=== PATIENT | male | born 1935 | race Caucasian/White ===

== ENCOUNTER 2019-02-20 18:51 | Observation (INO) | payer OTHER, BC ==
--- NOTE | 2019-02-20 19:03 | PDOC ---
Rapid Medical Evaluation Chief Complaint: Chest Pain Medical Evaluation: Allergies Allergy/AdvReac Type Severity Reaction Status Date / Time No Known Allergies Allergy Verified 02/20/19 18:59 Vital Signs Temp Pulse Resp BP Pulse Ox 98.6 F 60 16 138/47 L 99 02/20/19 18:54 02/20/19 18:54 02/20/19 18:54 02/20/19 18:54 02/20/19 18:54 02/20/19 19:02 his patient had a brief in-person evaluation in triage CC:mid chest pain x today. States pain worse when he takes a deep breath has a defirillator in place PE: NAD unlabored breathing, lungs clear bilaterally non tender chest orders: ekg, chest xray , labs This patient will proceed to the ED for further evaluation Discharge Disposition - Diagnosis Chest pain - Referrals - Patient Instructions - Post Discharge Activity
[2019-02-20 19:33] LABS: BASO % 0.3 % (0-2.0); HEMATOCRIT 33.5 % (35.4-49); HEMOGLOBIN 11.3 GM/dL (11.7-16.9); LYMPH % 7.5 % (8-40); MCHC 33.7 g/dl (32.0-35.9); MEAN CELL VOLUME 86.2 fl (80-96); MEAN PLT VOLUME 10.1 fl (7.5-11.1); MONO % 7.7 % (3.8-10.2); NEUT % 84.5 % (42.8-82.8); PLATELET COUNT 187 K/MM3 (134-434); RBC 3.88 M/mm3 (4.00-5.60); RDW 17.2 % (11.9-15.9); WHITE BLOOD COUNT 9.7 K/mm3 (4.0-10.0)
[2019-02-20 19:52] LABS: ALBUMIN 3.3 g/dl (3.4-5.0); BILIRUBIN,TOTAL 0.6 mg/dL (0.2-1); BLOOD UREA NITROGEN 15.6 mg/dL (7-18); CALCIUM 8.8 mg/dL (8.5-10.1); CREATININE 1.1 mg/dL (0.55-1.3); TOT PROT 7.4 g/dl (6.4-8.2)
[2019-02-20 20:16] LABS: INR 1.79 (0.83-1.09); PROTHROMBIN TIME (PATIENT) 21.2 SEC (9.7-13.0)
[2019-02-20 20:19] LABS: ACTIVATED PTT 47.9 SECONDS (25.2-36.5)
[2019-02-20 21:00] LABS: N-TERMINAL BNP 1929.1 pg/ml (5-450)
--- NOTE | 2019-02-20 21:52 | PDOC ---
History of Present Illness - General Chief Complaint: Chest Pain Stated Complaint: CHEST PAIN Time Seen by Provider: 02/20/19 19:54 History Source: Patient Exam Limitations: No Limitations - History of Present Illness Initial Comments: 02/20/19 20:38 83 yo male pmh of V tach 4 years ago (on eliquis, has defibrillator, Primary Cardiology Dr. Patterson, last Echo 4-5 months ago reported as normal) presents to the ED for CP. Pt states the CP has been ongoing for 1 month related to deep breathing, non exertional, no radiation. Admits to increased SOB with walking up stairs but no positional dyspnea. Denies recent travel, new calf tenderness, F/C/N/V, back pain, abdominal pain, changes in bowel or bladder habits. Pt admits to increased excersise Past History - Past Medical History Allergies/Adverse Reactions: Allergies Allergy/AdvReac Type Severity Reaction Status Date / Time No Known Allergies Allergy Verified 02/20/19 18:59 Home Medications: Ambulatory Orders NK [No Known Home Medication] 07/13/14 Atorvastatin Ca [Lipitor -] 40 mg PO tablet 07/28/14 Carvedilol 3.125 mg PO tablet 07/28/14 Anemia: No Asthma: No Cancer: Yes (28 YRS AGO LUNG/BRAIN) Cardiac Disorders: Yes CVA: No COPD: No CHF: No Dementia: No Diabetes: No GI Disorders: No Disorders: No HTN: No Hypercholesterolemia: No Liver Disease: No Seizures: Yes (28 YRS AGO) Thyroid Disease: No - Surgical History Abdominal Surgery: No Appendectomy: No Cardiac Surgery: Yes Cholecystectomy: No Lung Surgery: Yes (LUNG CA REMOVED) Neurologic Surgery: Yes (BRAIN CA SX) Orthopedic Surgery: Yes (KNEE SURGERY) - Suicide/Smoking/Psychosocial Hx Smoking History: Former smoker Have you smoked in the past 12 months: No Number of Cigarettes Smoked Daily: 8 If you are a former smoker, when did you quit?: 28 YRS AGO Information on smoking cessation initiated: No Hx Alcohol Use: No Drug/Substance Use Hx: No Substance Use Type: None Hx Substance Use Treatment: No *Physical Exam - Vital Signs Last Vital Signs Temp Pulse Resp BP Pulse Ox 98.6 F 60 16 138/47 L 99 02/20/19 18:54 02/20/19 18:54 02/20/19 18:54 02/20/19 18:54 02/20/19 18:54 ED Treatment Course - LABORATORY CBC & Chemistry Diagram: 02/20/19 19:15 02/20/19 19:15 - ADDITIONAL ORDERS Additional order review: Laboratory Results 02/20/19 02/20/19 02/20/19 19:15 19:15 19:15 PT with INR 21.20 H INR 1.79 H PTT (Actin FS) 47.9 H Sodium 136 Potassium 4.0 Chloride 102 Carbon Dioxide 29 Anion Gap 5 L BUN 15.6 Creatinine 1.1 Est GFR (CKD-EPI)AfAm 72.07 Est GFR (CKD-EPI)NonAf 62.19 Random Glucose 108 H Calcium 8.8 Total Bilirubin 0.6 AST 16 ALT 13 Alkaline Phosphatase 137 H Troponin I < 0.02 Total Protein 7.4 Albumin 3.3 L 02/20/19 19:15 RBC 3.88 L MCV 86.2 MCHC 33.7 RDW 17.2 H MPV 10.1 Neutrophils % 84.5 H Lymphocytes % 7.5 L D Monocytes % 7.7 Eosinophils % 0.0 Basophils % 0.3 *DC/Admit/Observation/Transfer Diagnosis at time of Disposition: Chest pain, New onset of congestive heart failure - Discharge Dispostion Condition at time of disposition: Stable Decision to Admit order: Yes - Referrals Referrals: Balaji Peng MD [Primary Care Provider] - - Patient Instructions - Post Discharge Activity
--- NOTE | 2019-02-20 21:52 | PDOC ---
Documentation entered by Carrie Borden SCRIBE, acting as scribe for Ludmila Lang DO. Ludmila Lang DO: This documentation has been prepared by the héctor, Carrie Borden SCRIBE, under my direction and personally reviewed by me in its entirety. I confirm that the documentation accurately reflects all work , treatment, procedures, and medical decision making performed by me. Attending Attestation - Resident Resident Name: Pete Campuzano - ED Attending Attestation I have performed the following: I have examined & evaluated the patient, The case was reviewed & discussed with the resident, I agree w/resident's findings & plan, Exceptions are as noted - HPI HPI: 02/20/19 21:24 The patient is an 83-year-old male, with a past medical history of ventricular tachycardia (Defibrillator in place), who presents to the ED with pleuritic chest pain and B/L LE swelling. - Physicial Exam PE: 02/20/19 21:25 Agree with resident exam. - Medical Decision Making 02/20/19 21:50 83-year-old male with leg swelling and central chest pressure Though patient anticoagulated, in the setting of a mildly elevated d-dimer and acute leg swelling as well as constant central chest pressure lower extremity Dopplers as well as CTA of the chest be done to rule out PE Plan for admission pending results for further evaluation, serial troponins as well
--- NOTE | 2019-02-20 23:47 | HP ---
Admitting History and Physical - Primary Care Physician PCP: Balaji Peng - Admission Chief Complaint: Chest Pain, SOB, Leg Swelling History of Present Illness: This is a 83 y/o man with a significant medical history of Lung Ca s/p Lobectomy , Brain Ca w/ Abscess s/p surgical intervention, V- Tach s/p AICD, HLD. Who presents to the ED with chest pressure non-radiating increased on deep inspiration, SOB and LE swelling x several days. Patient describes the CP as sharp and constant. Patient reports that the pain started while at rest. Patient denies fever, chills, dizziness, palpitations, AP, N/V/D, constipation History Source: Patient Limitations to Obtaining History: No Limitations - Past Medical History CHICKEN HANGER: Yes: Syncope (Near syncope) Cardiovascular: Yes: Hyperlipdemia, Mitral Insufficiency Pulmonary: Yes: Cancer (Lung) - Past Surgical History Past Surgical History: Yes: AICD - Smoking History Smoking history: Former smoker Have you smoked in the past 12 months: No Aproximately how many cigarettes per day: 8 If you are a former smoker, when did you quit?: 28 YRS AGO - Alcohol/Substance Use Hx Alcohol Use: No History of Substance Use: reports: None - Social History Usual Living Arrangement: Yes: With Spouse ADL: Independent Home Medications - Allergies Allergies/Adverse Reactions: Allergies Allergy/AdvReac Type Severity Reaction Status Date / Time No Known Allergies Allergy Verified 02/20/19 18:59 - Home Medications Home Medications: Ambulatory Orders Apixaban [Eliquis] 5 mg PO DAILY 02/20/19 Carvedilol [Coreg -] 6.25 mg PO BID 02/20/19 Ranolazine [Ranexa] 500 mg PO BID 02/20/19 Family Disease History - Family Disease History Family Disease History: Heart Disease: Father ([place]- ), Other: Mother ( Old Age- ) Review of Systems - Review of Systems Constitutional: reports: No Symptoms Eyes: reports: No Symptoms HENT: reports: No Symptoms Neck: reports: No Symptoms Cardiovascular: reports: Chest Pain, Shortness of Breath Respiratory: reports: SOB Gastrointestinal: reports: No Symptoms Genitourinary: reports: No Symptoms Breasts: reports: No Symptoms Reported Musculoskeletal: reports: No Symptoms Integumentary: reports: No Symptoms Neurological: reports: No Symptoms Endocrine: reports: No Symptoms Hematology/Lymphatic: reports: No Symptoms Psychiatric: reports: No Symptoms Pain Intensity: 6 Physical Examination Vital Signs: Vital Signs Temperature 98.6 F 02/20/19 18:54 Pulse Rate 60 02/20/19 18:54 Respiratory Rate 16 02/20/19 18:54 Blood Pressure 138/47 L 02/20/19 18:54 O2 Sat by Pulse Oximetry (%) 99 02/20/19 18:54 Constitutional: Yes: Well Nourished, No Distress, Calm Eyes: Yes: WNL, Conjunctiva Clear, EOM Intact, PERRL HENT: Yes: WNL, Atraumatic, Normocephalic Neck: Yes: WNL, Supple, Trachea Midline Cardiovascular: Yes: Pulse Irregular, S1, S2, Other (AICD- LCW) Respiratory: Yes: Diminished Gastrointestinal: Yes: WNL, Normal Bowel Sounds, Soft Renal/: Yes: WNL Breast(s): Yes: WNL Musculoskeletal: Yes: WNL Extremities: Yes: WNL Edema: Yes Edema: LLE: 2+, RLE: 1+ Peripheral Pulses WNL: Yes Neurological: Yes: WNL, Alert, Oriented, Cran Nerves II-XII Intact ...Motor Strength: WNL Psychiatric: Yes: WNL, Alert, Oriented Labs: CBC, BMP 02/20/19 19:15 02/20/19 19:15 Laboratory Results - last 24 hr 02/20/19 02/20/19 02/20/19 19:15 19:15 19:15 WBC 9.7 RBC 3.88 L Hgb 11.3 L Hct 33.5 L D MCV 86.2 MCH 29.0 MCHC 33.7 RDW 17.2 H Plt Count 187 D MPV 10.1 Absolute Neuts (auto) 8.2 H Neutrophils % 84.5 H Lymphocytes % 7.5 L D Monocytes % 7.7 Eosinophils % 0.0 Basophils % 0.3 Nucleated RBC % 0 PT with INR 21.20 H INR 1.79 H PTT (Actin FS) 47.9 H D-Dimer Sodium 136 Potassium 4.0 Chloride 102 Carbon Dioxide 29 Anion Gap 5 L BUN 15.6 Creatinine 1.1 Est GFR (CKD-EPI)AfAm 72.07 Est GFR (CKD-EPI)NonAf 62.19 Random Glucose 108 H Calcium 8.8 Total Bilirubin 0.6 AST 16 ALT 13 Alkaline Phosphatase 137 H Troponin I B-Natriuretic Peptide 1929.1 H Total Protein 7.4 Albumin 3.3 L 02/20/19 02/20/19 02/21/19 19:15 19:15 01:50 WBC RBC Hgb Hct MCV MCH MCHC RDW Plt Count MPV Absolute Neuts (auto) Neutrophils % Lymphocytes % Monocytes % Eosinophils % Basophils % Nucleated RBC % PT with INR INR PTT (Actin FS) D-Dimer 582 H Sodium Potassium Chloride Carbon Dioxide Anion Gap BUN Creatinine Est GFR (CKD-EPI)AfAm Est GFR (CKD-EPI)NonAf Random Glucose Calcium Total Bilirubin AST ALT Alkaline Phosphatase Troponin I < 0.02 < 0.02 B-Natriuretic Peptide Total Protein Albumin Imaging - Results Chest X-ray: Image Reviewed Cat Scan: Report Reviewed, Image Reviewed Assessment/Plan This is a 83 y/o man with a PMHx of: Lung Ca s/p Lobectomy, Brain Ca s/p Resection, V- Tach s/p AICD, HLD. Admitted to Telemetry for NSTEMI, New Onset CHF for further evaluation of their emergent condition. Plan: Admit Tele HEART Score 4 Continue cardiac monitoring Appreciate Cardiology consult Echo in am CTA done r/o PE- report shows neg PE, neg TAA or dissection, 5.3cm x 5cm LLL mass highly suspicious for carcinoma, moderate left and small right pleural effusion. 1.6cm RLL nodule or nodular infiltrate Duplex b/l LE- neg DVT Appreciate Pulm consult Appreciate Oncology consult Monitor CBC, BMP Asa Morphine prn Continue Eliquis Continue other home meds FEN- PO fluids as tolerated, Replete lytes prn, Low Na Diet DVT ppx- OOB, SCDs, Continue Eliquis Dispo: Requires Inpatient Care Visit type - Emergency Visit Emergency Visit: Yes ED Registration Date: 02/20/19 Care time: The patient presented to the Emergency Department on the above date and was hospitalized for further evaluation of their emergent condition. - New Patient This patient is new to me today: Yes Date on this admission: 02/20/19 - Critical Care Critical Care patient: No
[2019-02-21] MEDS ORDERED: FUROSEMIDE 40 MG/4 ML INJECTABLE VIAL IVPUSH ONE (04:46)
[2019-02-21] MEDS ORDERED: MORPHINE SULFATE 2 MG/ML VIAL IVPUSH PRN (05:36)
[2019-02-21] MEDS ORDERED: ONDANSETRON 4 MG/2 ML VIAL IVPUSH PRN (05:37)
[2019-02-21 05:43] VITALS: BMI 24.0
[2019-02-21 06:36] VITALS: TEMP 98.4
[2019-02-21 07:43] LABS: BASO % 0.1 % (0-2.0); HEMATOCRIT 29.9 % (35.4-49); LYMPH % 8.6 % (8-40); MCH 29.1 pg (25.7-33.7); MCHC 33.4 g/dl (32.0-35.9); MEAN CELL VOLUME 87.3 fl (80-96); MEAN PLT VOLUME 9.9 fl (7.5-11.1); MONO % 12.1 % (3.8-10.2); NEUT % 79.2 % (42.8-82.8); PLATELET COUNT 147 K/MM3 (134-434); RBC 3.42 M/mm3 (4.00-5.60); RDW 16.8 % (11.9-15.9); WHITE BLOOD COUNT 8.8 K/mm3 (4.0-10.0)
[2019-02-21 08:07] LABS: BLOOD UREA NITROGEN 15.1 mg/dL (7-18); CHLORIDE 103 mmol/L (98-107); CO2 30 mmol/L (21-32); GLUCOSE,RANDOM 100 mg/dL (74-106); POTASSIUM 3.6 mmol/L (3.5-5.1); SODIUM 138 mmol/L (136-145)
[2019-02-21 08:08] LABS: ANION GAP 5 MMOL/L (8-16); CALCIUM 8.2 mg/dL (8.5-10.1); MAGNESIUM 2.3 mg/dL (1.8-2.4)
[2019-02-21 08:34] VITALS: BP 107/54; PULSE 63
--- NOTE | 2019-02-21 09:04 | CON.CARD ---
Consult Consult Specialty:: Cardiology Referred by:: Yazmin Silva MD Reason for Consultation:: CAD, ICD, VT, PAF - History of Present Illness Chief Complaint: chest pressure SOB and LE swelling x several days History of Present Illness: Patient is a 83 year old male last seen in the office in 01/11/19 with history of lung CA S/P lobectomy, brain abscess S/P surgical intervention, hyperlipidemia, 3 vessel CAD, sustained VT s/p Biotronik ICD, PAF [id number] 3- 4 admitted for pleuritic, non-exertional chest pressure non-radiating increased on deep inspiration, SOB and LE swelling x several days. Patient describes the CP as sharp and constant. Patient denies fever, chills, dizziness, palpitations , hemoptysis, orthopnea, PND, ICD d/c or LE edema, chest CTA neg for PE, + RLL and LLL pleural based masses with small effusion and suggestion of mets to hilum. - History Source History Provided By: Patient Limitations to Obtaining History: No Limitations - Past Medical History HAZMAT TECHNICIAN: Yes: Syncope (Near syncope) Cardio/Vascular: Yes: Hyperlipdemia, Mitral Insufficiency Pulmonary: Yes: Cancer (Lung) - Past Surgical History Past Surgical History: Yes: AICD - Alcohol/Substance Use Hx Alcohol Use: No History of Substance Use: reports: None - Smoking History Smoking history: Former smoker Have you smoked in the past 12 months: No Aproximately how many cigarettes per day: 8 If you are a former smoker, when did you quit?: 28 YRS AGO - Social History ADL: Independent Home Medications - Allergies Allergies/Adverse Reactions: Allergies Allergy/AdvReac Type Severity Reaction Status Date / Time No Known Allergies Allergy Verified 02/20/19 18:59 - Home Medications Home Medications: Ambulatory Orders Apixaban [Eliquis] 5 mg PO DAILY 02/20/19 Carvedilol [Coreg -] 6.25 mg PO BID 02/20/19 Ranolazine [Ranexa] 500 mg PO BID 02/20/19 Family Disease History - Family Disease History Family Disease History: Heart Disease: Father ([place]- ), Other: Mother ( Old Age- ) Review of Systems - Review of Systems Cardiovascular: reports: Chest Pain, Shortness of Breath Respiratory: reports: SOB Vital Signs: Vital Signs Temperature 98.4 F 02/21/19 08:30 Pulse Rate 63 02/21/19 08:30 Respiratory Rate 18 02/21/19 08:30 Blood Pressure 107/54 L 02/21/19 08:30 O2 Sat by Pulse Oximetry (%) 95 02/21/19 07:14 Constitutional: Yes: No Distress, Calm, Thin Neck: Yes: Supple Respiratory: Yes: Regular, Diminished Gastrointestinal: Yes: Normal Bowel Sounds, Soft Cardiovascular: Yes: Regular Rate and Rhythm JVD: No Carotid Bruit: No Heart Sounds: Yes: S1, S2 Edema: No - Other Data Labs, Other Data: CBC, BMP 02/21/19 07:10 02/21/19 07:10 INR, PTT INR 1.79 (0.83-1.09) H 02/20/19 19:15 Troponin, BNP 02/20/19 02/20/19 02/21/19 19:15 19:15 01:50 Troponin I < 0.02 < 0.02 B-Natriuretic Peptide 1929.1 H 02/21/19 07:10 Troponin I < 0.02 B-Natriuretic Peptide Troponin, BNP 02/20/19 02/20/19 02/21/19 19:15 19:15 01:50 Troponin I < 0.02 < 0.02 B-Natriuretic Peptide 1929.1 H 02/21/19 07:10 Troponin I < 0.02 B-Natriuretic Peptide NSR @ 68 Ejection Fraction %: LVEF > or = 40 % Imaging - Results Chest X-ray: Report Reviewed (LLL mass) Cat Scan: Report Reviewed (Chest CTA: No PE, RLL and LLL pleural based mass with small effusion, RUL resection, mediastinal adenopathy) Ultrasound: Pending Problem List - Problems (1) Atypical chest pain Code(s): R07.89 - OTHER CHEST PAIN (2) ICD (implantable cardioverter-defibrillator) in place Code(s): Z95.810 - PRESENCE OF AUTOMATIC (IMPLANTABLE) CARDIAC DEFIBRILLATOR (3) Sustained ventricular tachycardia Code(s): I47.2 - VENTRICULAR TACHYCARDIA (4) Lung mass Code(s): R91.8 - OTHER NONSPECIFIC ABNORMAL FINDING OF LUNG FIELD (5) Hypertension Code(s): I10 - ESSENTIAL (PRIMARY) HYPERTENSION Qualifiers: Hypertension type: essential hypertension Qualified Code(s): I10 - Essential (primary) hypertension (6) Hyperlipidemia Code(s): E78.5 - HYPERLIPIDEMIA, UNSPECIFIED Qualifiers: Hyperlipidemia type: pure hypercholesterolemia Qualified Code(s): E78.00 - Pure hypercholesterolemia, unspecified; E78.0 - Pure hypercholesterolemia (7) Paroxysmal atrial fibrillation Code(s): I48.0 - PAROXYSMAL ATRIAL FIBRILLATION (8) Chronic anticoagulation Code(s): Z79.01 - USP (CURRENT) USE OF ANTICOAGULANTS (9) Coronary artery disease Code(s): I25.10 - ATHSCL HEART DISEASE OF [place] CORONARY ARTERY W/O ANG PCTRS Qualifiers: Coronary Disease-Associated Artery/Lesion type: unspecified vessel or lesion type Associated angina: without angina Assessment/Plan 02/04/2019 ICD interrogation: A paced 85%, RV paced 3%, atrial burden 2.9%, no ventricular arrhytmias, no ICD therapy, mean number of mode switched per day is 80 06/29/2018 Normal LV and RV size and fxn, mild LAE, tr VT, ICD 1. Atypical chest pain -> Bilateral lower lobe masses with mediastinal adenopathy r/o lung ca recurrence 2. PAF->SR [id number] 4 on NOAC 3. 3 vessel CAD 4. Sustained ventricular tachycardia S/P Biotronik ICD 5. Diastolic dysfunction 6. Hypercholesterolemia 7. History of lung CA S/P lobectomy 8. History of brain abscess S/P resection PLAN: 1. Hold Eliquis pending biopsy of lung mass, may proceed 2 days after withhold and resume once post-procedure hemostasis achieved, f/u formal vasc US results, metastatic w/u 2. Ruled out [place] 3. Continue Lipitor 40 qd, carvedilol 6.25 bid, Ranexa 500 bid 4. Thank you for consultative opportunity
[2019-02-21] MEDS ORDERED: RANOLAZINE E.R. 500 MG TABLET (FP) PO SCH (10:00)
[2019-02-21] MEDS ORDERED: APIXABAN 5 MG TABLET PO SCH (10:00)
[2019-02-21] MEDS ORDERED: CARVEDILOL 6.25 MG TABLET (FP) PO SCH (10:00)
--- NOTE | 2019-02-21 12:33 | PN ---
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 S/P R LOBECTOMY + CRANIOTOMY ASHD PAF ANEMIA PLAN WILL SCHEDULE FOR CT GUIDED BX LLL MASS PET OUTPATIENT HOLD SOFIYA LUCERO Problem List - Problems (1) Atypical chest pain Code(s): R07.89 - OTHER CHEST PAIN (2) Chronic anticoagulation Code(s): Z79.01 - COMPLETION SUPERVISOR (CURRENT) USE OF ANTICOAGULANTS (3) Coronary artery disease Code(s): I25.10 - ATHSCL HEART DISEASE OF [place] CORONARY ARTERY W/O ANG PCTRS (4) Hyperlipidemia Code(s): E78.5 - HYPERLIPIDEMIA, UNSPECIFIED Qualifiers: Qualified Code(s): E78.00 - Pure hypercholesterolemia, unspecified; E78.0 - Pure hypercholesterolemia (5) Hypertension Code(s): I10 - ESSENTIAL (PRIMARY) HYPERTENSION Qualifiers: Qualified Code(s): I10 - Essential (primary) hypertension (6) ICD (implantable cardioverter-defibrillator) in place Code(s): Z95.810 - PRESENCE OF AUTOMATIC (IMPLANTABLE) CARDIAC DEFIBRILLATOR (7) Lung mass Code(s): R91.8 - OTHER NONSPECIFIC ABNORMAL FINDING OF LUNG FIELD (8) Paroxysmal atrial fibrillation Code(s): I48.0 - PAROXYSMAL ATRIAL FIBRILLATION (9) Sustained ventricular tachycardia Code(s): I47.2 - VENTRICULAR TACHYCARDIA
--- NOTE | 2019-02-21 12:40 | PN ---
Progress Note (short form) - Note Progress Note: Events noted has some left sided chest discomfort no sob on lying down family at bedside Vital Signs - 24 hr 02/20/19 02/20/19 02/21/19 18:54 23:25 02:00 Temperature 98.6 F 99.0 F Pulse Rate 60 Pulse Rate [ 72 60 Apical] Respiratory 16 20 16 Rate Blood Pressure 138/47 L Blood Pressure 120/68 112/57 L [Left Arm] O2 Sat by Pulse 99 95 96 Oximetry (%) 02/21/19 02/21/19 02/21/19 05:34 06:00 07:14 Temperature 97.8 F 98.4 F Pulse Rate 61 61 Pulse Rate [ Apical] Respiratory 20 18 18 Rate Blood Pressure 119/52 L 100/42 L Blood Pressure [Left Arm] O2 Sat by Pulse 95 95 Oximetry (%) 02/21/19 08:30 Temperature 98.4 F Pulse Rate 63 Pulse Rate [ Apical] Respiratory 18 Rate Blood Pressure 107/54 L Blood Pressure [Left Arm] O2 Sat by Pulse Oximetry (%) Current Medications Generic Name Dose Route Start Last Admin Trade Name Freq PRN Reason Stop Dose Admin Carvedilol 6.25 mg 02/21/19 10:00 02/21/19 10:00 Coreg - PO 6.25 mg BID CHRISTOPHER Administration Furosemide 40 mg 02/22/19 10:00 Lasix Injection - IVPUSH 02/24/19 10:01 DAILY [facility] Morphine Sulfate 2 mg 02/21/19 05:36 Morphine Sulfate IVPUSH Q4H PRN PAIN LEVEL 7 - 10 Ondansetron HCl 4 mg 02/21/19 05:37 Zofran Injection IVPUSH Q6H PRN NAUSEA AND/OR VOMITING Ranolazine 500 mg 02/21/19 10:00 02/21/19 10:00 Ranexa - PO 500 mg BID CHRISTOPHER Administration Laboratory Results - last 24 hr 02/20/19 02/20/19 02/20/19 19:15 19:15 19:15 WBC 9.7 RBC 3.88 L Hgb 11.3 L Hct 33.5 L D MCV 86.2 MCH 29.0 MCHC 33.7 RDW 17.2 H Plt Count 187 D MPV 10.1 Absolute Neuts (auto) 8.2 H Neutrophils % 84.5 H Lymphocytes % 7.5 L D Monocytes % 7.7 Eosinophils % 0.0 Basophils % 0.3 Nucleated RBC % 0 PT with INR 21.20 H INR 1.79 H PTT (Actin FS) 47.9 H D-Dimer Sodium 136 Potassium 4.0 Chloride 102 Carbon Dioxide 29 Anion Gap 5 L BUN 15.6 Creatinine 1.1 Est GFR (CKD-EPI)AfAm 72.07 Est GFR (CKD-EPI)NonAf 62.19 Random Glucose 108 H Calcium 8.8 Magnesium Total Bilirubin 0.6 AST 16 ALT 13 Alkaline Phosphatase 137 H Troponin I B-Natriuretic Peptide 1929.1 H Total Protein 7.4 Albumin 3.3 L 02/20/19 02/20/19 02/21/19 19:15 19:15 01:50 WBC RBC Hgb Hct MCV MCH MCHC RDW Plt Count MPV Absolute Neuts (auto) Neutrophils % Lymphocytes % Monocytes % Eosinophils % Basophils % Nucleated RBC % PT with INR INR PTT (Actin FS) D-Dimer 582 H Sodium Potassium Chloride Carbon Dioxide Anion Gap BUN Creatinine Est GFR (CKD-EPI)AfAm Est GFR (CKD-EPI)NonAf Random Glucose Calcium Magnesium Total Bilirubin AST ALT Alkaline Phosphatase Troponin I < 0.02 < 0.02 B-Natriuretic Peptide Total Protein Albumin 02/21/19 02/21/19 07:10 07:10 WBC 8.8 RBC 3.42 L Hgb 10.0 L Hct 29.9 L MCV 87.3 MCH 29.1 MCHC 33.4 RDW 16.8 H Plt Count 147 D MPV 9.9 Absolute Neuts (auto) 7.0 Neutrophils % 79.2 Lymphocytes % 8.6 Monocytes % 12.1 H Eosinophils % 0.0 Basophils % 0.1 Nucleated RBC % 0 PT with INR INR PTT (Actin FS) D-Dimer Sodium 138 Potassium 3.6 Chloride 103 Carbon Dioxide 30 Anion Gap 5 L BUN 15.1 Creatinine 1.0 Est GFR (CKD-EPI)AfAm 80.88 Est GFR (CKD-EPI)NonAf 69.78 Random Glucose 100 Calcium 8.2 L Magnesium 2.3 Total Bilirubin AST ALT Alkaline Phosphatase Troponin I < 0.02 B-Natriuretic Peptide Total Protein Albumin S1 S2 RRR Lungs decreased Abd- soft, NT no edema PLAN ACS ruled out Pulmonary and cardiology eval noted hold Eliqujonny continue with meds Oncology eval for biopsy of lung mass on Monday needs PET as outpt Problem List - Problems (1) Atypical chest pain Code(s): R07.89 - OTHER CHEST PAIN (2) Chest pain Code(s): R07.9 - CHEST PAIN, UNSPECIFIED (3) Coronary artery disease Code(s): I25.10 - ATHSCL HEART DISEASE OF [place] CORONARY ARTERY W/O ANG PCTRS Qualifiers: Coronary Disease-Associated Artery/Lesion type: unspecified vessel or lesion type Associated angina: without angina (4) Hyperlipidemia Code(s): E78.5 - HYPERLIPIDEMIA, UNSPECIFIED Qualifiers: Hyperlipidemia type: pure hypercholesterolemia Qualified Code(s): E78.00 - Pure hypercholesterolemia, unspecified; E78.0 - Pure hypercholesterolemia (5) Hypertension Code(s): I10 - ESSENTIAL (PRIMARY) HYPERTENSION Qualifiers: Hypertension type: essential hypertension Qualified Code(s): I10 - Essential (primary) hypertension (6) ICD (implantable cardioverter-defibrillator) in place Code(s): Z95.810 - PRESENCE OF AUTOMATIC (IMPLANTABLE) CARDIAC DEFIBRILLATOR (7) Lung mass Code(s): R91.8 - OTHER NONSPECIFIC ABNORMAL FINDING OF LUNG FIELD
--- NOTE | 2019-02-21 13:31 | CONS ---
DATE OF CONSULTATION: 02/21/2019 REFERRING PHYSICIAN: Leelee Buckley MD HISTORY OF PRESENT ILLNESS: The patient is an 83-year-old white male with a past medical history of lung CA status post a lobectomy 30 years ago. 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 He was admitted to [facility] on February 20 with complaint of pleuritic non-exertional chest pain increased with inspiration. He denied any fevers, chills, nausea, or vomiting. He also noted some increase in lower extremity edema for the past couple of days. Patient described his chest pain and increased with inspiration. He also has noticed increasing dyspnea on exertion over the past couple of days. Patient also complains of a 20-pound weight loss over the past year. Patient has a history of tobacco use of many years, quit 30 years ago. There is no history of occupational exposures. On admission, the patient underwent a CTA of the chest, which result was negative for pulmonary embolism, but revealed a small 1.8-cm mass, right lower lobe, and a 5-cm mass left lower lobe and extensive mediastinal hilar adenopathy and a small left pleural effusion. PAST MEDICAL HISTORY: Again includes lung CA status post lung lobectomy greater than 30 years ago with a history of solitary brain metastasis as well as brain abscess status post craniotomy, hyperlipidemia, ASHD, ventricular tachycardia, status post ICD, paroxysmal atrial fibrillation. REVIEW OF SYSTEMS: No orthopnea. dyspnea on exertion. Positive for chest pain. No fever, no chills. Positive weight loss. No hemoptysis, no abdominal pain. Positive mild lower extremity edema. CURRENT MEDICATIONS: Medications prior to admission include Eliquis, Coreg, and Ranexa. SOCIAL HISTORY: History of tobacco use, quit greater than 30 years ago. No occupational exposures. PHYSICAL EXAMINATION: General: The patient is a well-developed, well-nourished male, awake, alert, currently in no acute distress. Vital signs: He is afebrile. Blood pressure is 107/54, respiratory rate 18, O2 saturation is 95% on room air. HEENT: Head is normocephalic atraumatic. Neck: Supple. Heart: Regularly irregular, S1, S2. Chest: Clear. Abdomen: Soft. Bowel sounds positive. Extremities: Trace of lower extremity edema. No cyanosis. LABORATORIES: INR 1.79. WBC is 8.8, hemoglobin 10.9, hematocrit 29.9, platelet count of 147,000. BUN 15, creatinine 1.9. BNP is 1921. Chest CT again shows a 5.5 x 5 cm left lower lobe mass with some calcifications and the 18 mm nodular density in the right lower lobe posteriorly. There is also extensive adenopathy in the aortopulmonary precarinal, subcarinal adenopathy and hilar adenopathy. IMPRESSION: 1. 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 2. Chest pain. 3. History of ventricular tachycardia status post implantable cardioverter defibrillator. 4. 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 5. [place] paroxysmal atrial fibrillation 6. Anemia. PLAN: Will schedule for CT-guided biopsy, left lower lobe mass, PET scan as outpatient, hold anticoagulation, Lasix as per Cardiology. DAINA LUCERO M.D. CHRIS/[id number]
--- NOTE | 2019-02-21 13:32 | DS ---
Physical Examination Vital Signs: Vital Signs Temperature 98.4 F 02/21/19 08:30 Pulse Rate 63 02/21/19 08:30 Respiratory Rate 18 02/21/19 08:30 Blood Pressure 107/54 L 02/21/19 08:30 O2 Sat by Pulse Oximetry (%) 95 02/21/19 07:14 Labs: CBC, BMP 02/21/19 07:10 02/21/19 07:10 Discharge Summary Reason For Visit: CHEST PAIN Current Active Problems Atypical chest pain (Acute) Chest pain (Acute) Chronic anticoagulation (Acute) Coronary artery disease (Acute) Hyperlipidemia (Acute) Hypertension (Acute) ICD (implantable cardioverter-defibrillator) in place (Acute) Lung mass (Acute) New onset of congestive heart failure (Acute) Paroxysmal atrial fibrillation (Acute) Sustained ventricular tachycardia (Acute) Hospital Course: see progress note will dc pt home and he will come Monday for lung biopsy He should hold off Eliquis in the meantime Condition: Stable - Instructions Diet, Activity, Other Instructions: for lung biopsy on Monday Referrals: Javier Shannon MD [Staff Physician] - Giancarlo Beltrán [Non Staff, Medical] - Disposition: HOME - Home Medications Comprehensive Discharge Medication List: Ambulatory Orders Apixaban [Eliquis] 5 mg PO DAILY 02/20/19 Carvedilol [Coreg -] 6.25 mg PO BID 02/20/19 Ranolazine [Ranexa] 500 mg PO BID 02/20/19
--- NOTE | 2019-02-21 14:38 | EKG ---
Test Reason : Blood Pressure : / mmHG Vent. Rate : 068 BPM Atrial Rate : 068 BPM P-R Int : 148 ms QRS Dur : 094 ms QT Int : 416 ms P-R-T Axes : 073 065 039 degrees QTc Int : 442 ms POOR DATA QUALITY, INTERPRETATION MAY BE ADVERSELY AFFECTED NORMAL SINUS RHYTHM NORMAL ECG WHEN COMPARED WITH ECG OF 15-JUL-2014 08:12, NO SIGNIFICANT CHANGE WAS FOUND Confirmed by KIMBERLI MARQUEZ, EDIN ([id number]) on 02/21/2019 2:38:08 PM Referred By: Confirmed By:EDIN AG MD
[2019-02-22] MEDS ORDERED: FUROSEMIDE 40 MG/4 ML INJECTABLE VIAL IVPUSH SCH (10:00)
== END 2019-02-21 14:52 | disposition home or self-care (01) ==
LOC: JER 18:51 → INTOOBSV 22:55 → JERBED 22:55 → J4W 02-21 05:19
PROVIDERS: ADMIT Internal Medicine; ATTEND Internal Medicine
PROC: 3E033GC Introduction of Other Therapeutic Substance into Peripheral Vein, Percutaneous Approach (ICD-10-PCS; principal; 2019-02-20)
DX: R07.89 Other chest pain (principal); I47.2 Ventricular tachycardia; I11.0 Hypertensive heart disease with heart failure; E78.5 Hyperlipidemia, unspecified; I50.9 Heart failure, unspecified; I48.0 Paroxysmal atrial fibrillation; I25.10 Atherosclerotic heart disease of native coronary artery without angina pectoris; R91.8 Other nonspecific abnormal finding of lung field; D64.9 Anemia, unspecified; Z90.2 Acquired absence of lung [part of]; Z85.118 Personal history of other malignant neoplasm of bronchus and lung; Z85.841 Personal history of malignant neoplasm of brain; Z86.69 Personal history of other diseases of the nervous system and sense organs; Z86.79 Personal history of other diseases of the circulatory system; Z95.810 Presence of automatic (implantable) cardiac defibrillator; Z79.01 Long term (current) use of anticoagulants; Z87.891 Personal history of nicotine dependence
CPT/HCPCS: 36415; 71046-TC-FY; 71275-TC; 80048; 80053; 83735; 83880; 84484; 85025; 85379; 85610; 85730; 93005; 93010; 93970-TC; 96374; 99283-25; G0378

== ENCOUNTER 2019-02-25 09:44 | Day surgery (SDC) | payer OTHER, BC ==
[2019-02-22 18:17] VITALS: BMI 23.0
[2019-02-25 11:01] LABS: INR 1.22 (0.83-1.09); PROTHROMBIN TIME (PATIENT) 14.4 SEC (9.7-13.0)
[2019-02-25 14:26] VITALS: TEMP 97.9
[2019-02-25 16:34] VITALS: BP 119/62; PULSE 89
--- NOTE | 2019-03-18 16:28 | PATH ---
Surgical Pathology Report Patient Name: ALISTAIR NUNEZ [facility]. Rec. #: [id number] /Age/Gender: 1935 (Age: 83) / M Account: [id number] Location: RADIOLOGY INTER Taken: 02/25/2019 Received: 02/25/2019 Reported: 02/27/2019 Physicians: Cj Keane M.D. Negro Denson M.D. Specimen(s) Received LUNG, LEFT, LLL Clinical History History of lung cancer status post lobectomy with brain metastases. New shortness of breath with lung masses on CT-largest 5.3 x 5.0 cm left lower lobe. Final Diagnosis LUNG, LEFT, LOWER LOBE, MASS, CT GUIDED CORE BIOPSY: ADENOCARCINOMA, MODERATELY TO POORLY DIFFERENTIATED. Comment: Immunohistochemical stains performed and interpreted at [facility] show the tumor is positive for TTF-1 and p63. Additional immunohistochemical stains performed at [place], [place] ([id number]) and interpreted at [facility] show the tumor is positive for Napsin A, while negative for p40. This immunophenotype supports the above diagnosis. Case discussed with Dr. Shannon. Positive and negative controls (internal if applicable) show appropriate results. Electronically Signed Leisa Carr M.D. Gross Description Received in formalin labeled "left lung biopsy," is a 1.0 x 0.6 x 0.1 cm aggregate of abundant [place] soft tissue fragments. The formalin is filtered and the specimen is entirely submitted in one cassette. /02/25/201902/25/2019
== END 2019-02-25 15:40 | disposition home or self-care (01) ==
LOC: JRADIR 09:44
PROVIDERS: ATTEND Internal Medicine
PROC: 0BBJ3ZX Excision of Left Lower Lung Lobe, Percutaneous Approach, Diagnostic (ICD-10-PCS; principal; 2019-02-25)
DX: C34.32 Malignant neoplasm of lower lobe, left bronchus or lung (principal); C79.31 Secondary malignant neoplasm of brain
CPT/HCPCS: 32405; 36415; 71045-TC-FY; 77012-TC; 85610; 88305-TC; 88341-TC; 88342-TC